=== PATIENT | male | born 1995 | race Caucasian/White ===

== ENCOUNTER → 2018-12-14 | Outpatient (CLI) | payer OTHER, SELFPAY ==
--- NOTE | 2018-12-14 08:23 | RAD_ITS ---
STUDY: X-RAY - LEFT ELBOW REASON FOR EXAM: Male, 23 years old. History of radial head fracture. TECHNIQUE: 3 view(s) of the elbow. COMPARISON: None. FINDINGS: Nondisplaced radial head fracture. Normal radiocapitellar and ulnotrochlear articulations. Joint effusion. RAD/Elbow min 3 Views IMPRESSION: Nondisplaced radial head fracture. Joint effusion. Electronically Signed: Francisco Maloney, at 15:53 EDT , Service support ,
== END | disposition home or self-care (01) ==
PROVIDERS: Family Provider Pediatrics; PCP Pediatrics; Referring Provider Orthopaedic Surgery; Visit Provider Orthopaedic Surgery
DX: M25.522 Pain in left elbow (principal)
CPT/HCPCS: 73080

== ENCOUNTER → 2018-12-28 | Outpatient (CLI) | payer OTHER, SELFPAY ==
[2018-12-14 08:22] VITALS: BMI 27.6
--- NOTE | 2018-12-28 14:29 | RAD_ITS ---
STUDY: X-RAY - LEFT ELBOW REASON FOR EXAM: Male, 23 years old. Pain, previous fracture TECHNIQUE: 3 view(s) of the elbow. COMPARISON: 12/14/2018 FINDINGS: Healing nondisplaced osteochondral fracture in the proximal radius again noted. Continued follow-up recommended to assure complete osseous union. No acute fracture or joint space abnormality noted. RAD/Elbow min 3 Views IMPRESSION: Healing proximal radial fracture, follow-up recommended to assure complete osseous union Electronically Signed: Basil Santiago MD at 15:02 EDT , Service support ,
== END | disposition home or self-care (01) ==
LOC: HPRAD 14:29
PROVIDERS: Family Provider Pediatrics; PCP Pediatrics; Referring Provider Orthopaedic Surgery; Visit Provider Orthopaedic Surgery
DX: S52.122A Displaced fracture of head of left radius, initial encounter for closed fracture (principal)
CPT/HCPCS: 73080

== ENCOUNTER → 2019-01-18 | Outpatient (CLI) | payer OTHER, SELFPAY ==
--- NOTE | 2019-01-18 08:04 | RAD_ITS ---
STUDY: X-RAY - LEFT ELBOW REASON FOR EXAM: Male, 23 years old. Radial fracture TECHNIQUE: 4 view(s) of the elbow. COMPARISON: December 28, 2018 FINDINGS: Normal visualized humerus, and ulna. There is progressive healing of previously noted radial head fracture with increased callus deposition. Normal radiocapitellar and ulnotrochlear articulations. The soft tissue structures are unremarkable. RAD/Elbow min 3 Views IMPRESSION: Increasing healing of radial head fracture Electronically Signed: Rich Lees MD at 17:02 EDT , Service support ,
== END | disposition home or self-care (01) ==
LOC: HPRAD 08:04
PROVIDERS: Referring Provider Orthopaedic Surgery; Visit Provider Orthopaedic Surgery
DX: S52.122A Displaced fracture of head of left radius, initial encounter for closed fracture (principal)
CPT/HCPCS: 73080

== ENCOUNTER 2019-02-15 14:00 | Outpatient (RCR) | payer OTHER, SELFPAY ==
--- NOTE | 2019-01-06 07:26 | HP.OTEVAL ---
Patient's Visit Information JONAS CLINE is a 23 year old M, referred to Occupational Therapy by Saad Henley DO, with a diagnosis of L radial head fracture. Date of Evaluation: 01/06/19 Occupational Therapist: MANI Freire/L - Subjective Subjective: Jonas arrived and noted original injury occurred about 4 weeks ago while skateboarding with friend. Noted that he was splinted for about 4 weeks and recently had splint removed by Dr. Reilly 12/28/18. He leaves to return to college in about a week and is looking for home exercises to complete when returning to school. 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 Noted increased difficulty with lifting tasks and general soreness and stiffness of L elbow s/p radial head fracture. - ADLs Yard: [place], [place], Use shovel Miscellaneous: Take things out of wallet, Use hand tools, Use power tools Comments: Jonas notes increased difficulty withy farm and work-related chore for carrying and lifting tasks. - Pain Left Elbow 1 Pain Intensity Range: 3 - ROM Elbow: R 0-141, L 15-124 Forearm: Supination R 0-71, L 0-45; Pronation R 0-71, L 0-39 MP: WFL PIP: WFL DIP: WFL - Strength Complex Director: flexed R 102, L 62; extended R 100, L 71 Lateral Pinch: R 29, L 27 Tripod Pinch: R 29, L 20 Tip-to-Tip Pinch: R 26, L 19 - Sensation Sensation Comments: WFL: Denies numbness and tingling. - In-Hand Manipulation Finger to Palm Translation: Normal - Right, Normal - Left Palm to Finger Translation: Normal - Right, Normal - Left Shift: Normal - Right, Normal - Left Rotation: Normal - Right, Normal - Left - Quick DASH-Disab of Arm,Shoulder& Hand Quick DASH Score: 47.7250 - Goals Goal:: Jonas to increase L dispute specialist strength by 20-30 lbs in flexed and extended positions (position 2 of dynamometer) to promote progression and stability of L elbow for ADl/IAdls 4/5 trials 80% of the time by d/c. Goal:: Jonas to increased ROM of L forearm by 10-20 degrees to promote increased ROM needed for fx tasks 4/5 trials 80% of the time to promote ability to return to PLOF by d/c. Goal:: Jonas to have no more than 1/10 pain with repetitive movements 4/5 trials 80% of the time to promote increased ROM and strength needed to return to PLOF by d/c. Goal:: Jonas to be mod I to complete good ergonomics and lifting abilities needed for farm-related and work-like tasks to promote equal load distribution and decreased risk of further injuries 4/5 trials 80% of the time by d/c. Goal:: Jonas to be be (i) to return to all ADL/IADls including work and leisure tasks 4/5 trials 80% of the time to promote increased ROM and strength needed to return to PLOF by d/c. Goal:: Jonas to complete daily HEP for ROM and strength to progress towards PLOF 4/5 trials 80% of the time by d/c. - Rehabilitation General Assessment: Jonas arrived at OT evaluation on this date of 01/05/19. He is s/p radial head fracture and is four weeks post break. Reports from Dr. Henley indicate routine healing. Jonas exhibits increased soreness and stiffness of L forearm with increased difficulties with supination and pronation. He additional exhibits decrease strength. Jonas to benefit from skilled OT to promote increased ROM and strength of L UE to return to PLOF for ADL/IADls. Rehabilitation Potential: Excellent - Anticipated Interventions Anticipated Interventions: A/AAROM/PROM, Strengthening, Edema Control, Triggerpoint Release, Modalities, Orthoses, Joint Protection/Energy Conservation, Ergonomic Education, Dynamic Sitting Balance, Fine Motor Coord/Sotero, ADL Training, Caregiver Training, Home Program - Visit Plan Frequency: 2-3x /Week Duration: 2 Weeks General Plan: Jonas to complete skilled OT services to promote ROM, Strength,and general ability to return to PLOF for ADl/IADls for L forearm. TEXT: Thank you for the opportunity to evaluate your patient. For Medicare and Medicare HMO plans, please review the plan of care and approve it. It will need to be FAXED BACK to us at [phone] for Medicare purposes. Please let me know if there are questions or concerns regarding this plan of care. Physician Signature: Date:
--- NOTE | 2019-01-17 15:34 | OTREVAL_ITS ---
Saad Henley, , It has been my pleasure to treat JONAS CLINE over the last 5 visits for L radial head fracture. Please see the progress note below for an update on the occupational therapy plan of care! Subjective: Arrived and noted that had sharp pop followed by pain around extensor mechanisms. Has iced and completed moist heat which helped but noted that supination is limited. Returns to doctor for follow- up appointment tomorrow. Objective/Function: Completed reassessment today on and results are as follows: ROM: Elbow: - R WFL, L 10-123. Forearm: - supination R WFL, L 0-34- very stiff and limited movement observed. - pronation R WFL, L 0-80 - has progressed nicely. Strength: - vocational guidance counselor flexed position 2: R 123, L 91. - vocational guidance counselor extended position 2: R 133, L 53 - regression from initial evaluation. lateral pinch: R 28, L 24. tripod R 30, L 23. pincer R 24, L 19. Jonas denies numb ness/tingling. Increased muscle tightness and tenderness with palpation of extensor digitorum and ECRB muscles. Noted when feeling 'pop' pain around EPB at thumb. OT believes tenderness continues to originate from tightness at ED and ECRB. Plan Frequency: 1-2x /Week Duration: 1-2 in 2/3 weeks Visits in this POC: 2 Plan: continue POC as chart will be kept open and he is to follow-up with visit or phone/email in 2-3 weeks on progress. He is returning to college and will be out of town. Educated on stat-a-dyne and dynasplint has been provided and noted that if supination does not improve within month of consistent HEP he would benefit from one of the two splints with doctor approval. He is to follow up with doctor tomorrow for appointment. The ?pop? he felt likely muscle tightness and pain referral consistent ECRB and ED and both very tight with palpation. He is to call with questions/concerns in meantime. Goals - Goals Goal:: Jonas to increase L vocational guidance counselor strength by 20-30 lbs in flexed and extended positions (position 2 of dynamometer) to promote progression and stability of L elbow for ADl/IAdls 4/5 trials 80% of the time by d/c. Goal:: Jonas to increased ROM of L forearm by 10-20 degrees to promote increased ROM needed for fx tasks 4/5 trials 80% of the time to promote ability to return to PLOF by d/c. Goal:: Jonas to have no more than 1/10 pain with repetitive movements 4/5 trials 80% of the time to promote increased ROM and strength needed to return to PLOF by d/c. Goal:: Jonas to be mod I to complete good ergonomics and lifting abilities needed for farm-related and work-like tasks to promote equal load distribution and decreased risk of further injuries 4/5 trials 80% of the time by d/c. Goal:: Jonas to be be (i) to return to all ADL/IADls including work and leisure tasks 4/5 trials 80% of the time to promote increased ROM and strength needed to return to PLOF by d/c. Goal:: Jonas to complete daily HEP for ROM and strength to progress towards PLOF 4/5 trials 80% of the time by d/c. Anticipated Interventions Anticipated Interventions: A/AAROM/PROM, Strengthening, Edema Control, Triggerpoint Release, Modalities, Orthoses, Joint Protection/Energy Conservation, Ergonomic Education, Dynamic Sitting Balance, Fine Motor C oord/Sotero, ADL Training, Caregiver Training, Home Program Please do not hesitate to contact me at [phone] by phone or if you have questions or concerns regarding this new plan of care! Sincerely, Ricarda Medrano, OTR/L
--- NOTE | 2019-02-15 15:12 | OTREVAL_ITS ---
Saad Henley, , It has been my pleasure to treat JONAS CLINE over the last 6 visits for L radial head fracture. Please see the progress note below for an update on the occupational therapy plan of care! Subjective: Arrived and noted that Dr. Mccarthy provided splint and that he batres sincreased weight limit of 25 lbs. Objective/Function: Completed reassessment on this day of this 02/15/19: Elbow: - R WFL, L 10-121. Supination R WFL, L 0-64. Pronation R WFL, L 0-46. Strength: - tab card press operator flexed: R 131, L 74 lbs. - tab card press operator extension R 121, L 90 lbs. - lateral pinch R 25, L 28 lbs. - tripod pinch R 29, L 21. . He has progressed with some measurements and regressed with others. Increased pocket edema noted a t lateral epicondyle during and post exercise. Compressed sleeve used to help. Plan Frequency: 1-2x /Week Duration: 1-2 in 2/3 weeks Visits in this POC: 2 Plan: continue POC for follow up in 1 month. Start the HEP set up today within weight limit of 25 lbs. He is to continue working pronation. Further educated on gym-based equipment to promote continued strengthening. Call questions/ concerns in meantime. Goals - Goals Goal:: Jonas to increase L tab card press operator strength by 20-30 lbs in flexed and extended positions (position 2 of dynamometer) to promote progression and stability of L elbow for ADl/IAdls 4/5 trials 80% of the time by d/c. Goal:: Jonas to increased ROM of L forearm by 10-20 degrees to promote increased ROM needed for fx tasks 4/5 trials 80% of the time to promote ability to return to PLOF by d/c. Goal:: Jonas to have no more than 1/10 pain with repetitive movements 4/5 trials 80% of the time to promote increased ROM and strength needed to return to PLOF by d/c. Goal:: Jonas to be mod I to complete good ergonomics and lifting abilities needed for farm-related and work-like tasks to promote equal load distribution and decreased risk of further injuries 4/5 trials 80% of the time by d/c. Goal:: Jonas to be be (i) to return to all ADL/IADls including work and leisure tasks 4/5 trials 80% of the time to promote increased ROM and strength needed to return to PLOF by d/c. Goal:: Jonas to complete daily HEP for ROM and strength to progress towards PLOF 4/5 trials 80% of the time by d/c. Anticipated Interventions Anticipated Interventions: A/AAROM/PROM, Strengthening, Edema Control, Triggerpoint Release, Modalities, Orthoses, Joint Protection/Energy Conservation, Ergonomic Education, Dynamic Sitting Balance, Fine Motor Coord/Sotero, ADL Training, Caregiver Training, Home Program Please do not hesitate to contact me at [phone] by phone or if you have questions or concerns regarding this new plan of care! Sincerely, Ricarda Medrano, OTR/L
--- NOTE | 2019-04-07 12:18 | HP.OTDCSUM ---
HP - OT D/C Summary It has been my pleasure to treat CHARLIE CLINE under orders from Saad Henley DO, for the diagnosis of L radial head fracture for a total of 6 visit(s). Please see the following information for a summary of their discharge status. - Overall Improvement % Improvement: 65 - Objective Objective/Function: Completed reassessment on this day of this 02/15/19: Elbow: - R WFL, L 10-121. Supination R WFL, L 0-64. Pronation R WFL, L 0-46. Strength: - human resources assistant manager flexed: R 131, L 74 lbs. - human resources assistant manager extension R 121, L 90 lbs. - lateral pinch R 25, L 28 lbs. - tripod pinch R 29, L 21. . He has progressed with some measurements and regressed with others. Increased pocket edema noted at lateral epicondyle during and post exercise. Compressed sleeve used to help. - Goals Patient Goals: Regain Mobility, Regain Strength, Decrease Pain, Return to Work, Decrease Swelling/Stiffness, Improve Fine Motor Skills, Use Hand/Wrist/Arm Normally Again, Sleep Better, Increase ROM, Be More Independent in ADLS, Resume Former Household Responsibilities (Cooking,Cleaning,Yard, etc.), Resume Hobbies Goal:: Charlie to increase L human resources assistant manager strength by 20-30 lbs in flexed and extended positions (position 2 of dynamometer) to promote progression and stability of L elbow for ADl/IAdls 4/5 trials 80% of the time by d/c. Goal:: Charlie to increased ROM of L forearm by 10-20 degrees to promote increased ROM needed for fx tasks 4/5 trials 80% of the time to promote ability to return to PLOF by d/c. Goal:: Charlie to have no more than 1/10 pain with repetitive movements 4/5 trials 80% of the time to promote increased ROM and strength needed to return to PLOF by d/c. Goal:: Charlie to be mod I to complete good ergonomics and lifting abilities needed for farm-related and work-like tasks to promote equal load distribution and decreased risk of further injuries 4/5 trials 80% of the time by d/c. Goal:: Charlie to be be (i) to return to all ADL/IADls including work and leisure tasks 4/5 trials 80% of the time to promote increased ROM and strength needed to return to PLOF by d/c. Goal:: Charlie to complete daily HEP for ROM and strength to progress towards PLOF 4/5 trials 80% of the time by d/c. - Plan Plan: Charlie will be d/c'd at this time. He was placed on medical hold due to further displacement of radial head fracture and measurements listed are from last in clinic appointment on 02/15/19. OT had called a couple times to follow up and he was to let her know status of elbow. He stopped into clinic today 04/07/19 and noted radial head is healing and explained to medical front desk coordinator to d/c chart. OT at lunch when he arrived to clinic. He is to call with questions/concerns. - D/C Information If there are questions or concerns regarding this patient's occupational therapy, please fell free to call me at [phone]. Thank you for the referral of this patient. Sincerely, Ricarda Medrano, OTR/L
== END 2019-02-15 19:00 | disposition home or self-care (01) ==
LOC: OT 14:00
PROVIDERS: Visit Provider Orthopaedic Surgery
DX: S52.122D Displaced fracture of head of left radius, subsequent encounter for closed fracture with routine healing (principal)
CPT/HCPCS: 97035; 97110; 97140; 97166; 97168; 97530

== ENCOUNTER → 2019-02-15 | Outpatient (CLI) | payer OTHER, SELFPAY ==
[2019-02-15 13:02] VITALS: BMI 27.6
--- NOTE | 2019-02-15 13:10 | RAD_ITS ---
STUDY: X-RAY - LEFT ELBOW REASON FOR EXAM: Male, 23 years old. Radial head fracture TECHNIQUE: 3 view(s) of the elbow. COMPARISON: Prior study of 01/18/2019 FINDINGS: There is again noted a healing nondisplaced oblique radial head fracture, with fracture line less distinct than noted on prior study. Complete bone union has not occurred as of yet. A posterior fat pad sign is again noted. The visualized distal humerus and proximal ulna appear normal. Normal radiocapitellar and ulnotrochlear articulations. RAD/Elbow min 3 Views IMPRESSION: Healing nondisplaced radial head fracture unchanged in alignment from the prior study. Complete bone union has not occurred as of yet. Electronically Signed: Rodrigo Baker MD at 23:53 EDT , Service support ,
== END | disposition home or self-care (01) ==
LOC: HPRAD 13:09
PROVIDERS: Referring Provider Orthopaedic Surgery; Visit Provider Orthopaedic Surgery
DX: S52.122A Displaced fracture of head of left radius, initial encounter for closed fracture (principal)
CPT/HCPCS: 73080

== ENCOUNTER → 2019-03-15 | Outpatient (CLI) | payer OTHER, SELFPAY ==
[2019-03-15 08:04] VITALS: BMI 27.6
--- NOTE | 2019-03-15 11:18 | RAD_ITS ---
STUDY: X-RAY - LEFT ELBOW REASON FOR EXAM: Male, 23 years old. TECHNIQUE: view(s) of the elbow. COMPARISON: Prior left elbow x-rays obtained on 02/15/2019 FINDINGS: Normal visualized humerus, and ulna. There are healing fractures noted involving the left radial head with callus deposition noted surrounding the fracture site. There is slight depression of the left radial head fracture but this was also noted previously and is essentially unchanged. Normal radiocapitellar and ulnotrochlear articulations. The soft tissue structures are unremarkable. RAD/Elbow min 3 Views IMPRESSION: Healing minimally depressed fracture of the left radial head. Electronically Signed: Dexter Cifuentes, at 13:56 EDT Tel , Service support ,
== END | disposition home or self-care (01) ==
LOC: HPRAD 11:17
PROVIDERS: Referring Provider Orthopaedic Surgery; Visit Provider Orthopaedic Surgery
DX: S52.122A Displaced fracture of head of left radius, initial encounter for closed fracture (principal)
CPT/HCPCS: 73080

== ENCOUNTER → 2019-04-07 | Outpatient (CLI) | payer OTHER, SELFPAY ==
[2019-03-15 08:04] VITALS: BMI 27.6
--- NOTE | 2019-04-07 11:02 | RAD_ITS ---
STUDY: X-RAY - LEFT ELBOW REASON FOR EXAM: Male, 23 years old. Follow-up of radial head fracture. Evaluate healing. TECHNIQUE: 3 view(s) of the elbow. COMPARISON: March 15, 2019 FINDINGS: Stable radial head fracture with minimal callus formation at the fracture site. No complications identified. Normal radiocapitellar and ulnotrochlear articulations. The soft tissue structures are unremarkable. RAD/Elbow min 3 Views IMPRESSION: Healing radial head fracture without complications. Electronically Signed: Sebastian Castellon MD at 11:43 EDT , Service support ,
== END | disposition home or self-care (01) ==
LOC: HPRAD 11:01
PROVIDERS: Referring Provider Orthopaedic Surgery; Visit Provider Orthopaedic Surgery
DX: S52.122A Displaced fracture of head of left radius, initial encounter for closed fracture (principal)
CPT/HCPCS: 73080

== ENCOUNTER 2021-01-06 09:26 | Emergency (ER) | payer OTHER, SELFPAY ==
[2019-04-07 11:42] VITALS: BMI 27.6
[2021-01-06 09:28] VITALS: BP 134/85; PULSE 81; RESP 16; TEMP 36.2; O2SAT 99; BMI 29.4
[2021-01-06 09:35] VITALS: PULSE 80; RESP 15; O2SAT 100
--- NOTE | 2021-01-06 09:44 | CT_ITS ---
STUDY: CT BRAIN WITHOUT CONTRAST REASON FOR EXAM: Male, 25 years old. tingling fingers, hx CVA RADIATION DOSAGE (If Supplied By Facility): CTDIvol = ( 44.99 ) mGy, DLP = ( 796.11 ) mGycm TECHNIQUE: Transaxial CT imaging of the brain was performed without administration of intravenous contrast material. Individualized dose optimization techniques were used for this CT. COMPARISON: CT head 01/08/2016 FINDINGS: Normal soft tissue structures. Normal calvarium. Normal size ventricles and extra-axial spaces for the patient''s age. Normal white matter tracts of the cerebral hemispheres. Normal basal ganglia and thalami. Normal brainstem. Normal cerebellum. There is no intracranial hemorrhage. There are no findings of an acute ischemic infarction. Normal visualized paranasal sinuses. CT/Brain/Head without Contrast IMPRESSION: Normal unenhanced CT scan of the brain. Electronically Signed: Joselyn Goodman MD at 10:25 EDT Tel , Service support ,
--- NOTE | 2021-01-06 09:44 | EKG12_ITS ---
Test Reason : WEAKNESS Blood Pressure : / mmHG Vent. Rate : 069 BPM Atrial Rate : 069 BPM P-R Int : 152 ms QRS Dur : 094 ms QT Int : 376 ms P-R-T Axes : 039 061 027 degrees QTc Int : 402 ms Normal sinus rhythm with sinus arrhythmia Normal ECG Confirmed by KRISTA ACOSTA, JONH ([id number]), sound editor MARY ALICE DOLAN ([id number]) on 01/09/2021 12:45:14 PM Referred By: MONICA Confirmed By:JONH VELASCO MD
--- NOTE | 2021-01-06 09:46 | NURSING ---
NO OLD EKGS
[2021-01-06 09:54] LABS: Absolute Lymphocyte Count 2.17 X10^3/uL (0.83-4.51); Absolute Neutrophil Count 3.2 X10^3/uL (2.0-7.7); Basophil# 0.02 X10^3/uL; Basophil% 0.3 % (0-1); Eosinophil# 0.03 X10^3/uL; Eosinophils% 0.5 % (0-5); Hematocrit 48.4 % (40-54); Hemoglobin 16.1 g/dL (13.0-16.5); Lymphocyte # 2.17 X10^3/ul (0.83-4.51); Lymphocyte % 37.2 % (19-41); Mean Corp Hgb Conc 33.3 g/dL (32-36); Mean Corpuscular Hgb 28.6 pg (27.0-32.0); Mean Platelet Vol. 9.9 fl (6.2-12.0); Monocyte# 0.45 X10^3/uL; Monocyte% 7.7 % (0-10); NRBC Flagged by Analyzer 0 % (0-5); Neutrophil # 3.16 X10^3/uL (2.7-7.7); Neutrophil % 54.1 % (47-70); Platelet Count 240 K/mm3 (150-450); RBC Distribution Width CV 12.6 % (11.6-14.6); RBC Distribution Width SD 39.1 fl (35.1-43.9); Red Blood Count 5.63 M/mm3 (4.6-6.2); White Blood Count 5.8 K/mm3 (4.4-11.0)
[2021-01-06] MEDS: 0.9% Normal Saline 1,000 ML 1000 ML IV (09:57)
--- NOTE | 2021-01-06 10:01 | EDS_ITS ---
HPI History of Present Illness Chief Complaint: Numb/Ting Informant: patient Narrative Narrative: This patient presents with about 2 weeks of left hand slight weakness and tingling in his left small and ring finger. This waxes and wanes. Does not really present now. There is report of falling also. However, patient fell prior to this event. He actually fell although denies injury to his head or neck. He also hit his head some days after this occurred but did not lose consciousness. He does take baby aspirin daily. 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 However, the patient states that the MRI showed he did not have a dissection but he had a blood clot secondary to a patent foramen ovale. That PFO has now been repaired. He has persistent symptoms in the same area where he has them over the last 2 weeks. It just seems that there a little bit more involved than they have been for some time. His prior stroke was actually back in 2016. Nothing specifically makes his symptoms better or worse. He does admit to working a lot more hours getting less sleep recently. He has a slight headache but sometimes he gets these anyway. He does not have any neck pain or pain with motion. He has no other neuro symptoms other than some mild left hand intermittent weakness and intermittent tingling of 2 fingers. Surgical history: Repair of patent foramen ovale in 2016 No strong family history of stroke. [facility] Medical History (Updated 01/06/21 @ 10:[address] Basilio Broderick MD) CVA (cerebral vascular accident) PFO (patent foramen ovale) no medical history Home Medications aspirin 81 mg PO DAILY@0800 01/06/16 [History Last Taken 01/07/16] Allergy/AdvReac Type Severity Reaction Status Date / Time No Known Allergies Allergy Verified 01/06/21 09:28 Social History Smoking Status: Never smoker ROS ROS ED Constitutional Constitutional ED: Denies fever(s) or subjective Eyes Eyes: Denies blurry vision, change in vision or diplopia ENT ENT ED: Denies ear pain or rhinorrhea Cardiovascular Cardiovascular: Denies chest pain or palpitations Respiratory/Chest Respiratory/Chest: Denies cough or dyspnea Gastrointestinal Gastrointestinal: Denies nausea or vomiting Musculoskeletal Musculoskeletal: Denies back pain or neck pain Integumentary Denies abscess or rash Neurologic Neurologic: Reports headache(s), paresthesias and weakness Endocrine Endocrinology: Denies polydipsia or polyuria Hematologic/Lymphatic Hematologic/Lymphatic: Denies easy bleeding or easy bruising Allergic/Immunologic Allergic/Immunologic ED: Denies urticaria EXAM Physical Exam Const Vital Signs: 01/06/21 09:28 01/06/21 09:35 Temperature 97.2 F L Temperature Source Temporal Pulse Rate 81 80 Respiratory Rate 16 15 Blood Pressure 134/85 H Blood Pressure Mean 101 Pulse Ox 99 100 Oxygen Delivery Method Room Air Room Air Positive well nourished and well developed General Appearance ED: well developed and NAD HEENT Reports dry mucous membranes atraumatic Mouth ED: Yes dry mucous membranes Mouth: dry mucous membranes Eyes PERRL and EOMs intact bilaterally Neck no lymphadenopathy and supple Chest Wall inspection of chest normal Resp normal respiratory effort and clear to auscultation bilaterally Cardio no murmurs Cardio Narrative: No residual murmur is heard even with strain and release of Valsalva. Rate: regular rate Rhythm: regular rhythm GI normal to inspection, nondistended, normoactive bowel sounds, soft to palpation and non-tender Back/Spine no CVA tenderness Extremity normal to inspection Neuro oriented x3 Neuro Narrative: Patient has an NIH of 0 now. But he is also not having symptoms at this time. Sensorium / Orientation: alert Psych mental status grossly normal Skin no wounds Lesions: no lesions Rashes: no rashes STROKE Vital Signs/Narrative: Vital Signs Temp Pulse Resp BP Pulse Ox 01/06/21 09:35 80 15 100 01/06/21 09:28 97.2 F L 81 16 134/85 H 99 MDM MDM MDM Narrative Medical decision making narrative: CBC and electrolytes show no marked abnormalities. CT scan of the head showed no acute findings. Patient is still asymptomatic. Patient is having waxing and waning symptoms in the same area where he has had residual symptoms. It just seems like it is a little bit more variable than it used to be. This is likely penumbra effect. He did call his neurologist who recommended he be seen for a CAT scan. He plans to follow-up with the neurologist at [facility]. He will continue his baby aspirin. We discussed returning with worsening symptoms or certainly with any new or novel symptoms. Lab Data Attestation: I reviewed the patient's lab results. Labs: Laboratory Results - last 24 hr 01/06/21 01/06/21 09:45 09:45 WBC 5.8 RBC 5.63 Hgb 16.1 Hct 48.4 MCV 86.0 MCH 28.6 MCHC 33.3 RDW Std Deviation 39.1 RDW Coeff of Tae 12.6 Plt Count 240 MPV 9.9 Immature Gran % (Auto) 0.200 Neut % (Auto) 54.1 Lymph % (Auto) 37.2 [place] % (Auto) 7.7 Eos % (Auto) 0.5 Baso % (Auto) 0.3 Absolute Neuts (auto) 3.2 Absolute Lymphs (auto) 2.17 Nucleated RBC % 0 Sodium 140 Potassium 3.9 Chloride 108 H Carbon Dioxide 30.0 Anion Gap 2 L BUN 11 Creatinine 0.86 Estim Creat Clear Calc 168.36 Est GFR (MDRD) Af Amer 142 Est GFR (MDRD) Non-Af 117 BUN/Creatinine Ratio 12.8 Glucose 85 Calcium 9.0 Radiography Diagnostic Testing: Radiology Impression Brain CT 01/06/21 09:44 IMPRESSION: Normal unenhanced CT scan of the brain. Electronically Signed: Joselyn Goodman MD at 10:25 EDT Tel , Service support , EKG Initial EKG: Comments: EKG done is work-up of neurologic issue. EKG read by me shows a normal sinus rhythm with rate of 69. No ventricular ectopy. No acute ST elevation or depression. ND interval, QRS duration and QTC are normal. Discharge Plan Triage Chief Complaint: Numb/Ting ED Provider: Basilio Broderick Dx/Rx/DC Orders Clinical Impression: Left hand paresthesia Instructions: ED Paraesthesias Prescriptions: No Action aspirin 81 MG tablet,chewable 81 mg PO DAILY@0800 RF: 0 Primary Care Provider: Marcin Yu Referrals: Marcin Yu DO [Primary Care Provider] - Activity Restrictions/Additional Instructions: Call your neurologist at [facility] for follow-up as soon as possible. Right turn with worsening or any new symptoms. Disposition Disposition: Home, Self Care
[2021-01-06 10:07] LABS: Anion Gap 2 (5-15); BUN 11 mg/dL (7-18); BUN/Creat Ratio 12.8 RATIO (10-20); Chloride 108 mmol/L (98-107); Creatinine, Serum 0.86 mg/dL (0.70-1.30); EST Glomerular Filtration Rate 117 mL/min (>60); Est Glom Filt Rate - Afr Amer 142 mL/min (>60); Estimated Creatinine Clearance 168.36 ml/min; Glucose 85 mg/dL (74-106); Potassium 3.9 mmol/L (3.5-5.1); Sodium Level 140 mmol/L (136-145)
[2021-01-06 11:22] VITALS: BP 118/71; PULSE 62; RESP 14; O2SAT 98
== END 2021-01-06 11:23 | disposition home or self-care (01) ==
PROVIDERS: Emergency Provider Emergency Medicine; PCP Student in an Organized Health Care Education/Training Program
DX: R20.2 Paresthesia of skin (principal); Z79.82 Long term (current) use of aspirin
CPT/HCPCS: 70450; 80048; 85025; 93005; 99283; J7030; A4216

== ENCOUNTER 2022-03-26 07:30 | Outpatient (RCR) | payer OTHER, SELFPAY ==
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
== END 2022-03-26 19:00 | disposition home or self-care (01) ==
LOC: PT 07:30
PROVIDERS: PCP Student in an Organized Health Care Education/Training Program
DX: S82.891D Other fracture of right lower leg, subsequent encounter for closed fracture with routine healing (principal); X58.XXXD Exposure to other specified factors, subsequent encounter
CPT/HCPCS: 97110; 97161